=== PATIENT | female | born 1945 | race Caucasian/White ===

== ENCOUNTER 2016-11-14 13:31 | Inpatient (IN) | payer MEDICARE ==
[~2016-11-14] VITALS: Ht 172.7 cm; Wt 76.4 kg
[2016-11-14] MEDS ORDERED: SALINE FLUSH 10 ML FLUSH PRN (16:00)
[2016-11-14] MEDS ORDERED: ACETAMINOPHEN 325 MG TAB PO PRN (16:00)
[2016-11-14 17:14] VITALS: BP_SYST 162; BP_SYST 172; RESP 20; TEMP 98.3
[2016-11-14 21:28] VITALS: BP_SYST 164; RESP 16; TEMP 98.7
[2016-11-14] MEDS: METOPROLOL XL 100 MG TAB PO SCH (22:21)
[2016-11-14] MEDS: SALINE FLUSH 10 ML FLUSH SCH (22:21)
[2016-11-14 23:17] VITALS: BP_SYST 157; RESP 16; TEMP 98.9
[2016-11-14] MEDS: LEVETIRACETAM INJ 500 MG in SODIUM CHLORIDE 0.9% 100 ML IV SCH (23:34)
[2016-11-15 04:19] VITALS: BP_SYST 147; RESP 16; TEMP 99.4
[2016-11-15] MEDS: SODIUM CHLORIDE 0.9% FLUSH BAG 500 ML IV SCH (05:01)
[2016-11-15 07:39] VITALS: BP_SYST 144; RESP 16; TEMP 98.5
[2016-11-15] MEDS: SALINE FLUSH 10 ML FLUSH SCH ×2 (08:35→21:50)
[2016-11-15] MEDS: LEVETIRACETAM INJ 500 MG in SODIUM CHLORIDE 0.9% 100 ML IV SCH ×2 (08:36→21:50)
[2016-11-15] MEDS: CEFTRIAXONE 2 GM in SODIUM CHLORIDE 0.9% 50 ML IV SCH (10:54)
[2016-11-15 11:19] VITALS: BP_SYST 146; RESP 18; TEMP 97.3
[2016-11-15] MEDS: LEVOFLOXACIN 500 MG/100 ML 100 ML IV SCH (11:42)
[2016-11-15] MEDS: MORPHINE 2 MG/ML SYR IV PRN ×3 (13:43→21:50)
[2016-11-15] MEDS: METOPROLOL XL 100 MG TAB PO SCH (14:08)
[2016-11-15] MEDS: D5-1/2-NS W/KCL 40MEQ/L 1,000 ML IV SCH (14:11)
[2016-11-15 15:18] VITALS: BP_SYST 109; RESP 18; TEMP 98.5
[2016-11-15] MEDS ORDERED: OPTIRAY 350 50 ML HMH IV ONE (18:52)
[2016-11-15 20:30] VITALS: BP_SYST 108; RESP 16; TEMP 98.5
[2016-11-16 00:14] VITALS: BP_SYST 127; RESP 16; TEMP 98.6
[2016-11-16] MEDS: Hydrocodone/APAP 10/325 MG TAB PO PRN ×3 (01:41→21:18)
[2016-11-16] MEDS: D5-1/2-NS W/KCL 40MEQ/L 1,000 ML IV SCH (02:26)
[2016-11-16] MEDS: MORPHINE 2 MG/ML SYR IV PRN ×3 (02:28→23:00)
[2016-11-16 03:51] VITALS: BP_SYST 126; RESP 16; TEMP 98.6
[2016-11-16] MEDS: SODIUM CHLORIDE 0.9% FLUSH BAG 500 ML IV SCH (05:45)
[2016-11-16 07:42] VITALS: BP_SYST 128; RESP 18; TEMP 98.4
[2016-11-16] MEDS ORDERED: MISSING DOSE XX ONE (07:55)
[2016-11-16] MEDS: LEVETIRACETAM INJ 500 MG in SODIUM CHLORIDE 0.9% 100 ML IV SCH ×2 (08:07→19:27)
[2016-11-16] MEDS: CEFTRIAXONE 2 GM in SODIUM CHLORIDE 0.9% 50 ML IV SCH (08:28)
[2016-11-16] MEDS: METOPROLOL XL 100 MG TAB PO SCH (08:30)
[2016-11-16] MEDS: SALINE FLUSH 10 ML FLUSH SCH ×2 (08:31→19:27)
[2016-11-16] MEDS: LEVOFLOXACIN 500 MG/100 ML 100 ML IV SCH (09:08)
[2016-11-16 11:47] VITALS: BP_SYST 128; RESP 16; TEMP 98.3
[2016-11-16 16:00] VITALS: BP_SYST 128; RESP 18; TEMP 98.6
[2016-11-16] MEDS: THIAMINE 100 MG in SODIUM CHLORIDE 0.9% 50 ML IV SCH ×2 (16:27→23:47)
[2016-11-16 20:31] VITALS: BP_SYST 137; RESP 18; TEMP 98.5
[2016-11-17] VITALS: BP_SYST 136; RESP 16; TEMP 98.7
[2016-11-17] MEDS: SODIUM CHLORIDE 0.9% FLUSH BAG 500 ML IV SCH (02:23)
[2016-11-17] MEDS: D5-1/2-NS W/KCL 40MEQ/L 1,000 ML IV SCH (02:28)
[2016-11-17 03:20] VITALS: BP_SYST 137; RESP 16; TEMP 99
[2016-11-17] MEDS: MORPHINE 2 MG/ML SYR IV PRN ×5 (03:22→20:26)
[2016-11-17] MEDS: Hydrocodone/APAP 10/325 MG TAB PO PRN ×2 (05:38→17:57)
[2016-11-17] MEDS: THIAMINE 100 MG in SODIUM CHLORIDE 0.9% 50 ML IV SCH ×3 (08:01→23:03)
[2016-11-17 09:03] VITALS: BP_SYST 141; RESP 16; TEMP 98.9
[2016-11-17] MEDS: SALINE FLUSH 10 ML FLUSH SCH ×2 (09:05→20:25)
[2016-11-17] MEDS: LEVETIRACETAM INJ 500 MG in SODIUM CHLORIDE 0.9% 100 ML IV SCH ×2 (09:05→20:25)
[2016-11-17] MEDS: METOPROLOL XL 100 MG TAB PO SCH (09:54)
[2016-11-17] MEDS: CEFTRIAXONE 2 GM in SODIUM CHLORIDE 0.9% 50 ML IV SCH (09:54)
[2016-11-17] MEDS ORDERED: MISSING DOSE XX ONE ×2 (09:55→22:55)
[2016-11-17 10:39] VITALS: Ht 172.7 cm; Wt 76.4 kg
[2016-11-17] MEDS: Ibuprofen 400 MG TAB PO PRN ×2 (11:47→23:03)
[2016-11-17 11:50] VITALS: BP_SYST 135; RESP 18; TEMP 98.9
[2016-11-17 15:59] VITALS: BP_SYST 128; RESP 16; TEMP 98.5
[2016-11-17 20:13] VITALS: BP_SYST 134; RESP 16; TEMP 97.6
[2016-11-18 00:11] VITALS: BP_SYST 137; RESP 16; TEMP 98.6
[2016-11-18] MEDS: MORPHINE 2 MG/ML SYR IV PRN ×6 (00:27→22:19)
[2016-11-18] MEDS: Hydrocodone/APAP 10/325 MG TAB PO PRN ×4 (02:55→23:39)
[2016-11-18 04:16] VITALS: BP_SYST 132; RESP 18; TEMP 97.8
[2016-11-18] MEDS: SODIUM CHLORIDE 0.9% FLUSH BAG 500 ML IV SCH ×2 (06:00→06:11)
[2016-11-18 07:21] VITALS: BP_SYST 136; RESP 16; TEMP 98.3
[2016-11-18] MEDS: SALINE FLUSH 10 ML FLUSH SCH ×2 (07:54→19:47)
[2016-11-18] MEDS: LEVETIRACETAM INJ 500 MG in SODIUM CHLORIDE 0.9% 100 ML IV SCH ×2 (07:54→19:47)
[2016-11-18] MEDS: THIAMINE 100 MG in SODIUM CHLORIDE 0.9% 50 ML IV SCH ×3 (08:30→23:39)
[2016-11-18] MEDS: METOPROLOL XL 100 MG TAB PO SCH (08:30)
[2016-11-18] MEDS: CEFTRIAXONE 2 GM in SODIUM CHLORIDE 0.9% 50 ML IV SCH (09:52)
[2016-11-18 11:13] VITALS: BP_SYST 127; RESP 18; TEMP 97.7
[2016-11-18 19:46] VITALS: BP_SYST 136; RESP 16; TEMP 97.7
[2016-11-18 22:56] VITALS: BP_SYST 129; RESP 16; TEMP 98.8
[2016-11-19] MEDS: MORPHINE 2 MG/ML SYR IV PRN ×5 (02:25→20:48)
[2016-11-19 04:16] VITALS: BP_SYST 138; RESP 18; TEMP 98.1
[2016-11-19] MEDS: SODIUM CHLORIDE 0.9% FLUSH BAG 500 ML IV SCH ×2 (05:20)
[2016-11-19] MEDS: Hydrocodone/APAP 10/325 MG TAB PO PRN ×2 (06:17→14:37)
[2016-11-19] MEDS: THIAMINE 100 MG in SODIUM CHLORIDE 0.9% 50 ML IV SCH ×2 (07:36→15:45)
[2016-11-19] MEDS: SALINE FLUSH 10 ML FLUSH SCH ×2 (07:37→20:47)
[2016-11-19 07:59] VITALS: BP_SYST 123; RESP 16; TEMP 98.6
[2016-11-19] MEDS: LEVETIRACETAM INJ 500 MG in SODIUM CHLORIDE 0.9% 100 ML IV SCH ×2 (08:26→20:47)
[2016-11-19] MEDS: METOPROLOL XL 100 MG TAB PO SCH (08:27)
[2016-11-19] MEDS: CEFTRIAXONE 2 GM in SODIUM CHLORIDE 0.9% 50 ML IV SCH (09:56)
[2016-11-19 11:37] VITALS: BP_SYST 117; RESP 18; TEMP 97.5
[2016-11-19] MEDS: LIDOCAINE 5% 700 MG PATCH TOPICAL SCH (15:38)
[2016-11-19 16:04] VITALS: BP_SYST 141; RESP 18; TEMP 98.4
[2016-11-19 19:50] VITALS: BP_SYST 120; RESP 18; TEMP 98
[2016-11-19 23:58] VITALS: BP_SYST 134; RESP 18; TEMP 99.3
[2016-11-20] MEDS: THIAMINE 100 MG in SODIUM CHLORIDE 0.9% 50 ML IV SCH ×3 (00:26→16:20)
[2016-11-20] MEDS: Hydrocodone/APAP 10/325 MG TAB PO PRN ×2 (00:33→14:58)
[2016-11-20 04:00] VITALS: BP_SYST 130; RESP 18; TEMP 99
[2016-11-20] MEDS: SODIUM CHLORIDE 0.9% FLUSH BAG 500 ML IV SCH ×2 (04:54→09:08)
[2016-11-20] MEDS: LEVETIRACETAM INJ 500 MG in SODIUM CHLORIDE 0.9% 100 ML IV SCH ×2 (07:54→20:14)
[2016-11-20] MEDS: SALINE FLUSH 10 ML FLUSH SCH ×2 (07:56→20:15)
[2016-11-20 08:01] VITALS: BP_SYST 136; RESP 18; TEMP 97.8
[2016-11-20] MEDS: METOPROLOL XL 100 MG TAB PO SCH (08:17)
[2016-11-20] MEDS: CEFTRIAXONE 2 GM in SODIUM CHLORIDE 0.9% 50 ML IV SCH (08:18)
[2016-11-20] MEDS: LIDOCAINE 5% 700 MG PATCH TOPICAL SCH (08:18)
[2016-11-20] MEDS: MORPHINE 2 MG/ML SYR IV PRN ×2 (11:51→20:21)
[2016-11-20 12:28] VITALS: BP_SYST 140; RESP 18; TEMP 99.6
[2016-11-20 16:12] VITALS: BP_SYST 128; RESP 18; TEMP 99.2
[2016-11-20 19:00] VITALS: BP_SYST 131; RESP 20; TEMP 98.3
[2016-11-20 23:00] VITALS: BP_SYST 111; RESP 20; TEMP 98.4
[2016-11-21] VITALS (9 sets, daily range): BP systolic 131–149; RESP 18; TEMP 97.5–98.9
[2016-11-21] MEDS: THIAMINE 100 MG in SODIUM CHLORIDE 0.9% 50 ML IV SCH ×3 (00:10→15:54)
[2016-11-21] MEDS: Hydrocodone/APAP 10/325 MG TAB PO PRN ×2 (00:10→20:41)
[2016-11-21] MEDS: SODIUM CHLORIDE 0.9% FLUSH BAG 500 ML IV SCH ×2 (05:09→05:46)
[2016-11-21] MEDS: SALINE FLUSH 10 ML FLUSH SCH ×2 (08:34→20:41)
[2016-11-21] MEDS: LEVETIRACETAM INJ 500 MG in SODIUM CHLORIDE 0.9% 100 ML IV SCH ×2 (08:34→20:40)
[2016-11-21] MEDS: METOPROLOL XL 100 MG TAB PO SCH (08:35)
[2016-11-21] MEDS: LIDOCAINE 5% 700 MG PATCH TOPICAL SCH (08:37)
[2016-11-21] MEDS ORDERED: MISSING DOSE XX ONE (08:50)
[2016-11-21] MEDS: MORPHINE 2 MG/ML SYR IV PRN ×4 (09:08→22:27)
[2016-11-21] MEDS: CEFTRIAXONE 2 GM in SODIUM CHLORIDE 0.9% 50 ML IV SCH (12:30)
[2016-11-22] MEDS: THIAMINE 100 MG in SODIUM CHLORIDE 0.9% 50 ML IV SCH ×4 (00:01→23:06)
[2016-11-22] MEDS: MORPHINE 2 MG/ML SYR IV PRN ×5 (02:28→23:14)
[2016-11-22] MEDS: Hydrocodone/APAP 10/325 MG TAB PO PRN ×4 (04:03→21:27)
[2016-11-22 04:20] VITALS: BP_SYST 136; RESP 18; TEMP 98.3
[2016-11-22] MEDS: SODIUM CHLORIDE 0.9% FLUSH BAG 500 ML IV SCH ×2 (05:52→05:53)
[2016-11-22 08:01] VITALS: BP_SYST 137; RESP 20; TEMP 98
[2016-11-22] MEDS: LEVETIRACETAM INJ 500 MG in SODIUM CHLORIDE 0.9% 100 ML IV SCH ×2 (08:10→21:26)
[2016-11-22] MEDS: SALINE FLUSH 10 ML FLUSH SCH ×2 (08:11→21:28)
[2016-11-22] MEDS: LIDOCAINE 5% 700 MG PATCH TOPICAL SCH (09:00)
[2016-11-22] MEDS: METOPROLOL XL 100 MG TAB PO SCH (09:21)
[2016-11-22] MEDS: CEFTRIAXONE 2 GM in SODIUM CHLORIDE 0.9% 50 ML IV SCH (09:53)
[2016-11-22 12:00] VITALS: BP_SYST 138; RESP 20; TEMP 98.2
[2016-11-22] MEDS ORDERED: MISSING DOSE XX ONE (13:55)
[2016-11-22] MEDS: KETOROLAC 10 MG TAB PO SCH ×3 (14:14→21:27)
[2016-11-22 15:16] VITALS: BP_SYST 124; RESP 18; TEMP 97.6
[2016-11-22 19:00] VITALS: BP_SYST 136; RESP 18; TEMP 98.6
[2016-11-22 23:00] VITALS: BP_SYST 132; RESP 18; TEMP 98
[2016-11-23] MEDS: Hydrocodone/APAP 10/325 MG TAB PO PRN ×3 (03:49→22:47)
[2016-11-23 04:29] VITALS: BP_SYST 129; RESP 18; TEMP 98.4
[2016-11-23] MEDS ORDERED: MISSING DOSE XX ONE (04:45)
[2016-11-23] MEDS: SODIUM CHLORIDE 0.9% FLUSH BAG 500 ML IV SCH ×3 (05:04→23:14)
[2016-11-23] MEDS: MORPHINE 2 MG/ML SYR IV PRN ×2 (05:07→16:10)
[2016-11-23 08:00] VITALS: BP_SYST 147; RESP 16; TEMP 98
[2016-11-23] MEDS: SALINE FLUSH 10 ML FLUSH SCH ×2 (08:00→20:00)
[2016-11-23] MEDS: METOPROLOL XL 100 MG TAB PO SCH (09:11)
[2016-11-23] MEDS: KETOROLAC 10 MG TAB PO SCH ×3 (09:11→20:44)
[2016-11-23] MEDS: THIAMINE 100 MG in SODIUM CHLORIDE 0.9% 50 ML IV SCH ×2 (09:11→23:13)
[2016-11-23] MEDS: LIDOCAINE 5% 700 MG PATCH TOPICAL SCH (09:12)
[2016-11-23 11:17] VITALS: BP_SYST 121; RESP 18; TEMP 97.5
[2016-11-23] MEDS: LEVETIRACETAM INJ 500 MG in SODIUM CHLORIDE 0.9% 100 ML IV SCH ×2 (11:33→20:45)
[2016-11-23 15:36] VITALS: BP_SYST 128; RESP 16; TEMP 97.6
[2016-11-23 19:59] VITALS: BP_SYST 126; TEMP 97.4
[2016-11-23 23:22] VITALS: BP_SYST 122; RESP 16; TEMP 98.1
[2016-11-24] MEDS: MORPHINE 2 MG/ML SYR IV PRN ×3 (01:23→23:25)
[2016-11-24] MEDS: SODIUM CHLORIDE 0.9% FLUSH BAG 500 ML IV SCH (01:24)
[2016-11-24 03:38] VITALS: BP_SYST 141; RESP 16; TEMP 98.1
[2016-11-24 07:58] VITALS: BP_SYST 136; RESP 18; TEMP 97.4
[2016-11-24] MEDS: METOPROLOL XL 100 MG TAB PO SCH (08:17)
[2016-11-24] MEDS: KETOROLAC 10 MG TAB PO SCH (08:17)
[2016-11-24] MEDS: SALINE FLUSH 10 ML FLUSH SCH ×2 (08:18→20:32)
[2016-11-24] MEDS: LEVETIRACETAM INJ 500 MG in SODIUM CHLORIDE 0.9% 100 ML IV SCH ×2 (08:18→20:33)
[2016-11-24] MEDS: LIDOCAINE 5% 700 MG PATCH TOPICAL SCH (08:19)
[2016-11-24] MEDS: THIAMINE 100 MG in SODIUM CHLORIDE 0.9% 50 ML IV SCH ×3 (08:19→23:26)
[2016-11-24 11:47] VITALS: BP_SYST 134; RESP 18; TEMP 97.7
[2016-11-24] MEDS: Hydrocodone/APAP 10/325 MG TAB PO PRN ×2 (13:31→20:33)
[2016-11-24 15:34] VITALS: BP_SYST 130; RESP 18; TEMP 97.4
[2016-11-24] MEDS ORDERED: Ibuprofen 400 MG TAB PO PRN (16:00)
[2016-11-24 20:09] VITALS: BP_SYST 123; RESP 16; TEMP 98.4
[2016-11-25 00:16] VITALS: BP_SYST 124; RESP 16; TEMP 98.4
[2016-11-25 04:39] VITALS: BP_SYST 136; RESP 16; TEMP 98.1
[2016-11-25] MEDS: SODIUM CHLORIDE 0.9% FLUSH BAG 500 ML IV SCH ×2 (05:33→05:34)
[2016-11-25] MEDS: SALINE FLUSH 10 ML FLUSH SCH ×2 (05:33→21:03)
[2016-11-25] MEDS: LEVETIRACETAM INJ 500 MG in SODIUM CHLORIDE 0.9% 100 ML IV SCH ×2 (08:29→21:04)
[2016-11-25] MEDS: METOPROLOL XL 100 MG TAB PO SCH (08:29)
[2016-11-25] MEDS: THIAMINE 100 MG in SODIUM CHLORIDE 0.9% 50 ML IV SCH ×3 (08:29→23:31)
[2016-11-25] MEDS: LIDOCAINE 5% 700 MG PATCH TOPICAL SCH (08:30)
[2016-11-25] MEDS: MORPHINE 2 MG/ML SYR IV PRN ×3 (08:49→23:30)
[2016-11-25 08:51] VITALS: BP_SYST 137; RESP 16; TEMP 97.6
[2016-11-25] MEDS: Hydrocodone/APAP 10/325 MG TAB PO PRN ×2 (11:51→18:23)
[2016-11-25 11:58] VITALS: BP_SYST 150; RESP 16; TEMP 97.6
[2016-11-25 15:17] VITALS: BP_SYST 139; RESP 16; TEMP 97.6
[2016-11-25 20:02] VITALS: BP_SYST 139; RESP 16; TEMP 97.6
[2016-11-26] VITALS (7 sets, daily range): BP systolic 117–145; RESP 16–18; TEMP 96.8–98.2
[2016-11-26] MEDS: SODIUM CHLORIDE 0.9% FLUSH BAG 500 ML IV SCH ×2 (06:00→06:17)
[2016-11-26] MEDS: MORPHINE 2 MG/ML SYR IV PRN ×4 (06:16→19:54)
[2016-11-26] MEDS: SALINE FLUSH 10 ML FLUSH SCH ×2 (09:34→20:00)
[2016-11-26] MEDS: LEVETIRACETAM INJ 500 MG in SODIUM CHLORIDE 0.9% 100 ML IV SCH ×2 (09:34→20:16)
[2016-11-26] MEDS: METOPROLOL XL 100 MG TAB PO SCH (09:34)
[2016-11-26] MEDS: LIDOCAINE 5% 700 MG PATCH TOPICAL SCH (09:34)
[2016-11-26] MEDS ORDERED: METHYLPRED SOD SUCC 40 MG VIAL IV ONE (09:35)
[2016-11-26] MEDS: THIAMINE 100 MG in SODIUM CHLORIDE 0.9% 50 ML IV SCH ×2 (09:40→15:50)
[2016-11-26] MEDS: Hydrocodone/APAP 10/325 MG TAB PO PRN (12:12)
[2016-11-27] MEDS: MORPHINE 2 MG/ML SYR IV PRN ×6 (00:16→22:11)
[2016-11-27] MEDS: THIAMINE 100 MG in SODIUM CHLORIDE 0.9% 50 ML IV SCH ×3 (00:16→15:37)
[2016-11-27 03:38] VITALS: BP_SYST 130; RESP 18; TEMP 98
[2016-11-27] MEDS: SALINE FLUSH 10 ML FLUSH SCH ×2 (05:06→20:00)
[2016-11-27] MEDS: SODIUM CHLORIDE 0.9% FLUSH BAG 500 ML IV SCH ×2 (05:07→05:09)
[2016-11-27] MEDS: Hydrocodone/APAP 10/325 MG TAB PO PRN ×2 (06:21→12:31)
[2016-11-27 07:28] VITALS: BP_SYST 132; RESP 18; TEMP 98
[2016-11-27] MEDS: METOPROLOL XL 100 MG TAB PO SCH (07:40)
[2016-11-27] MEDS: LEVETIRACETAM INJ 500 MG in SODIUM CHLORIDE 0.9% 100 ML IV SCH ×2 (07:40→21:43)
[2016-11-27] MEDS: LIDOCAINE 5% 700 MG PATCH TOPICAL SCH (07:42)
[2016-11-27 12:21] VITALS: BP_SYST 146; RESP 18; TEMP 97.6
[2016-11-27 15:07] VITALS: BP_SYST 114; RESP 18; TEMP 97.8
[2016-11-27] MEDS ORDERED: MISSING DOSE XX ONE ×2 (15:20→21:25)
[2016-11-27 20:00] VITALS: BP_SYST 131; RESP 18; TEMP 97.5
[2016-11-27 23:43] VITALS: BP_SYST 143; RESP 20; TEMP 97.5
[2016-11-28] MEDS: THIAMINE 100 MG in SODIUM CHLORIDE 0.9% 50 ML IV SCH ×2 (00:09→08:28)
[2016-11-28] MEDS: Hydrocodone/APAP 10/325 MG TAB PO PRN (00:09)
[2016-11-28] MEDS: SODIUM CHLORIDE 0.9% FLUSH BAG 500 ML IV SCH ×2 (02:01→05:48)
[2016-11-28 04:10] VITALS: BP_SYST 140; RESP 18; TEMP 98.2
[2016-11-28] MEDS: LIDOCAINE 5% 700 MG PATCH TOPICAL SCH (07:47)
[2016-11-28] MEDS: LEVETIRACETAM INJ 500 MG in SODIUM CHLORIDE 0.9% 100 ML IV SCH (07:47)
[2016-11-28] MEDS: SALINE FLUSH 10 ML FLUSH SCH (07:47)
[2016-11-28] MEDS: METOPROLOL XL 100 MG TAB PO SCH (07:47)
[2016-11-28] MEDS: MORPHINE 2 MG/ML SYR IV PRN ×2 (07:48→11:45)
[2016-11-28 07:57] VITALS: BP_SYST 143; RESP 18; TEMP 98
[2016-11-28 11:18] VITALS: BP_SYST 119; BP_SYST 143; RESP 18; TEMP 97.4; TEMP 98
== END 2016-11-28 12:29 | disposition home health service (06) | DRG 871 ==
LOC: ENRESERVDT → ENRESERVTM → ER 13:31 → EMR 15:57 → 4THW 16:57 → ENPENDDIS 11-15 12:13 → OBSVTOIN 11-15 12:13
PROVIDERS: ADMIT Internal Medicine; ATTEND Internal Medicine
DX: A41.9 Sepsis, unspecified organism (principal); G92 Toxic encephalopathy; I48.91 Unspecified atrial fibrillation; I50.30 Unspecified diastolic (congestive) heart failure; I11.0 Hypertensive heart disease with heart failure; N39.0 Urinary tract infection, site not specified; C44.40 Unspecified malignant neoplasm of skin of scalp and neck; E11.9 Type 2 diabetes mellitus without complications; J44.9 Chronic obstructive pulmonary disease, unspecified; B96.89 Other specified bacterial agents as the cause of diseases classified elsewhere; R41.82 Altered mental status, unspecified; E78.00 Pure hypercholesterolemia, unspecified; F17.200 Nicotine dependence, unspecified, uncomplicated; Z79.01 Long term (current) use of anticoagulants; Z79.82 Long term (current) use of aspirin; Z79.51 Long term (current) use of inhaled steroids; M19.032 Primary osteoarthritis, left wrist; M10.9 Gout, unspecified
CPT/HCPCS: 36415; 36600; 70450; 70470; 70551; 71010; 80053; 81001; 82140; 82803; 82947; 83018; 84146; 84439; 84443; 84550; 85025; 85610; 86038; 86431; 86618; 87040; 87077; 87088; 87186; 94799